=== PATIENT | male | born 1995 | race Caucasian/White ===

== ENCOUNTER 2017-05-10 14:31 | Emergency (ER) | END 2017-05-10 18:40 | disposition home or self-care (01) | DX: L02.212 Cutaneous abscess of back [any part, except buttock and flank] (principal); R40.2412 Glasgow coma scale score 13-15, at arrival to emergency department | CPT/HCPCS: 10160; 72131; 76536; Z7502 ==

== ENCOUNTER 2017-05-16 12:31 | Emergency (ER) | payer OTHER ==
[~2017-05-16] VITALS: Ht 175.3 cm; Wt 78.0 kg
[~2017-05-16 12:31] MED LIST: TYLENOL
[2017-05-16 12:38] VITALS: Ht 175.3 cm; Wt 78.0 kg
[2017-05-16] MEDS ORDERED: LIDOCAINE 2% (MDV) 20 ML INJ INJ ONE (14:00)
[2017-05-16] MEDS ORDERED: CLIN-73 PO (14:29)
[2017-05-16] MEDS ORDERED: IBUP-1542 PO (14:31)
--- NOTE | 2017-05-16 14:37 | ERD ---
ER Documentation Chief Complaint Date/Time DATE: 05/16/17 TIME: 14:33 Chief Complaint abscess on lower back for past week HPI This is a 21-year-old male presents to the ER with an abscess on his lower back that has had over the last 3 months. Patient is that he came here last week and imaging was done, area was aspirated, he felt much better after aspiration however area became bigger again and is now painful. He denies any fevers or chills. ROS 12 point review of systems was done, all negative except per HPI. Medications Home Meds Active Scripts Ibuprofen* (Motrin*) 600 Mg Tab, 600 MG PO Q6, #30 TAB Prov:RIP BHATT Therese 05/16/17 Clindamycin Hcl* (Clindamycin Hcl*) 300 Mg Capsule, 300 MG PO TID for 10 Days, CAP Prov:PAUL BHATTLORI Saleh 05/16/17 Reported Medications [Tylenol] No Conflict Check 07/17/10 Allergies Allergies: Coded Allergies: No Known Drug Allergies (Verified Allergy, Mild, 07/17/10) PMhx/Soc History of Surgery: Yes (APPENDECTOMY 12/2009 ) Anesthesia Reaction: No Hx Neurological Disorder: No Hx Respiratory Disorders: No Hx Cardiac Disorders: No Hx Psychiatric Problems: No Hx Miscellaneous Medical Probl: No Hx Alcohol Use: No Hx Substance Use: No Hx Tobacco Use: No Smoking Status: Never smoker Physical Exam Vitals Vital Signs Date Time Temp Pulse Resp B/P Pulse Ox O2 Delivery O2 Flow Rate FiO2 05/16/17 12:38 98.2 80 18 128/63 99 Physical Exam GENERAL: The patient is well developed and appropriate for usual state of health , in no apparent distress. HEENT: Atraumatic. CHEST: Clear to auscultation bilaterally. There are no rales, wheezes or rhonchi. HEART: Regular rate and rhythm. No murmurs, clicks, rubs or gallops. BACK: No midline or flank tenderness. NEURO: Alert and oriented. SKIN: There is a 2 cm x 4 cm fluctuant mass to the lower back there is no erythema however it is tender to palpation to light touch. Results 24 hrs Current Medications Medications (Trade) Dose Ordered Sig/Robert Route PRN Reason Start Time Stop Time Status Last Admin Dose Admin Lidocaine (Xylocaine 2% (Mdv) 20 ml) 20 ml ONCE ONCE INJ 05/16/17 14:00 05/16/17 14:01 DC Procedures/MDM I discussed this case with my supervising physician Dr. Aguero. Area is very fluctuant, and was not I&D last visit, I&D will be attempted to see if there is any purulent discharge that is expressed. At this time patient is afebrile and well-appearing suspicion for deep space infection is low, patient did finish his course of Keflex and Bactrim. Abscess Incision and Drainage with irrigation by me: Location: Lower back Anesthesia: Local 2% Lidocaine Technique: irrigated. Disrupted loculations w/ instrumentation. Copious amounts of purulent yellow fluid was expressed. Packin inch iodoform. Complications: Neurovascularly intact post procedure 48 hour wound check. Scar minimization instructions given. Patient's skin symptoms have stabilized while they have been evaluated in the department and are appropriate for outpatient care and work up. Exam and w/u not consistent w/ sepsis, deep space infection, or foreign body. Patient will be sent home with clindamycin. Patient is to follow-up with his primary care doctor within 1-2 days or return to ER sooner if symptoms worsen. I check my medical decision making with the patient he understands and agrees with plan. Departure Diagnosis: Primary Impression: Abscess Condition: Stable Patient Instructions: Abscess, Incision And Drainage Additional Instructions: Return to this facility in 2 DAYS for a follow-up exam.Return sooner if your condition worsens. RIP BHATT May 16, 2017 14:37
[2017-05-16 14:44] VITALS: BP 119/63; PULSE 78; RESP 16; TEMP 98.6
== END 2017-05-16 14:45 | disposition home or self-care (01) ==
LOC: FTE 12:31
DX: L02.212 Cutaneous abscess of back [any part, except buttock and flank] (principal)
CPT/HCPCS: 10061; Z7502; Z7610

== ENCOUNTER 2017-05-25 11:23 | Emergency (ER) | payer SELFPAY ==
[~2017-05-25] VITALS: Ht 172.7 cm; Wt 78.0 kg
[~2017-05-25 11:23] MED LIST changes: +CLIN-73 PO; +IBUP-1542 PO
[2017-05-25 11:28] VITALS: Ht 172.7 cm; Wt 78.0 kg
== END 2017-05-26 00:05 | disposition left against medical advice (07) ==
LOC: FTE 11:23
DX: Z53.21 Procedure and treatment not carried out due to patient leaving prior to being seen by health care provider (principal)